=== PATIENT | female | born 1995 | race Two or more races ===

== ENCOUNTER 2024-01-27 22:12 | Emergency (ER) | payer BC, MEDICAID, SELFPAY ==
[2024-01-27 22:14] VITALS: BP 129/93; PULSE 79; RESP 17; TEMP 36.7; O2SAT 98
[2024-01-27 22:27] VITALS: PULSE 78; O2SAT 98; BMI 28.7
--- NOTE | 2024-01-27 22:35 | EDNOTE_ITS ---
ED General RME/HPI General Chief complaint: Back Pain/Injury Stated complaint: BACK PAIN Time Seen by Provider: 01/27/24 22:29 Arrival date/time: 01/27/24 22:12 CC: Left low back buttock pain that radiates down the left leg into the foot, patient states a similar episode 1 month ago onset of this episode was 2 hours ago patient states that she was in the gym working out when this occurred. The patient states since the last visit she was gone to PT twice but has not followed up back with her primary care provider patient took 500 mg of NSAIDs and 1000 mg of ibuprofen in the past 2 hours with minimal relief. Patient denies any bowel or bladder symptoms saddle anesthesia numbness tingling or weakness in the lower extremities. Related Data Previous Rx's ?Medication ?Instructions ?Recorded ibuprofen 600 mg tablet 600 mg PO Q6HR PRN PAIN #20 tabs 10/15/16 cyclobenzaprine 10 mg tablet 10 mg PO TID PRN muscle spasm #10 12/17/23 tabs ibuprofen 600 mg tablet 600 mg PO Q8H PRN pain #20 tabs 12/17/23 lidocaine 5 % topical patch 1 patch topical QDAY #15 ea 01/27/24 (Lidoderm) prednisone 20 mg tablet See Taper PO BID 3 days #6 tabs 01/27/24 Allergies Allergy/AdvReac Type Severity Reaction Status Date / Time No Known Allergies Allergy Verified 12/17/23 08:29 Review of Systems Review of Systems Narrative Review of Systems: GEN: No fever, no chills, no weight loss EYES: No discharge, no visual changes, no pain HEENT: No ear pain, no congestion, no sore throat PULM: No shortness of breath, no cough, no congestion CV: No chest pain, no dyspnea on exertion, no palpitations GI: No nausea, no vomiting, no diarrhea, no pain, no constipation : No frequency, no urgency, no dysuria MUSC/SKEL: No joint pain, + back pain SKIN: No rash PSYCH: No hallucinations, no depression HEME/LYMPH: No easy bleeding or bruising tendencies NEURO: No weakness, no headache Past Medical History Social History SMOKING STATUS: Never smoker ED Exam Narrative Physical exam: [General: In mild discomfort but not in any acute distress Head normocephalic HEENT: Within acceptable limits Neck is supple nontender Chest equal chest rise nontender to palpation Respiratory: Clear to auscultation no wheezes crackles or rubs CV: Rate rhythm is regular no murmurs rubs or clicks Abdomen is soft nontender no masses positive bowel sounds all 4 quadrants Back: No CVA tenderness no spinous process tenderness from cervical spine thoracic and lumbar spine Skin: Intact no petechiae rash induration ulceration or crepitus Extremities: Lower extremities: The patient has range of motion of both lower extremities she has straight leg raise with the left leg however that elicits pain in the low back rating down the back of the leg. Patient has full flexion extension with equal strength bilaterally in both feet with flexion extension of the ankle. Cap refill all digits less than 2 seconds neurosensory intact. Moving all other extremities against resistance cap refill less than 2 seconds neurosensory intact Neuro: Awake alert oriented x3 Glascow coma 15 no focal deficits] Course Quality Measures none Vital Signs Vital signs: Vital Signs Temperature 98.0 F 01/27/24 22:14 Pulse Rate 79 01/27/24 22:14 Respiratory Rate 17 01/27/24 22:14 Blood Pressure 129/93 H 01/27/24 22:14 Pulse Oximetry (%) 98 01/27/24 22:14 Oxygen Delivery Method Room Air 01/27/24 22:14 MDM Patient data External records reviewed:: [facility] previous records Clinical information provided by:: patient and spouse Social determinants that could affect healthcare access:: none Patient has the following chronic illnesses:: None How is presenting disease/condition affected by chronic disease/condition?: uneffected by Evaluation data The following diagnostics were reviewed and interpreted by me:: other (specify) (None) Lab and/or radiology exams considered but not ordered:: None Interpretation Summary: Left sciatica Medications Medications considered but not ordered:: None Medication administrations:: None Consultations Consultation(s) initiated? (list below): No Diagnosis Differential Diagnosis ED Complaint MDM: Sciatica low back strain chronic low back pain Most likely diagnosis given after review of the tests above:: Left sciatica Admission Indicated Admission indicated?: not indicated Explain why admission is indicated or not indicated:: Stable for outpatient follow-up Admission Request Was there a request for admission?: No Disposition Plan Disposition Plan: Discharge Discharge Attestation Discharge Attestation: The patient and all family members were given an opportunity to ask questions and understood the discharge instructions. Discharge instructions specifically effects, indications for sooner follow up or return to the emergency department, and the expected course of current diagnosis. Patient condition: Stable Medical Decision Making Differential Diagnosis Differential Diagnosis: Sciatica low back strain chronic low back pain Discharge Plan Plan Patient Disposition: HOME (Self Care) Patient condition on transfer: Stable Prescriptions/Referrals Prescriptions/Med Rec: New prednisone 20 mg tablet See Taper PO BID 3 Days Qty: 6 0RF Taper: Prednisone Taper 20 mg DAILY for 2 Days and 0 Hour 10 mg DAILY for 2 Days and 0 Hour 5 mg DAILY for 7 Days and 0 Hour lidocaine [Lidoderm] 5 % adhesive patch,medicated 1 patch topical QDAY Qty: 15 0RF Rx Instructions: leave on most painful area for up to 12 hrs No Action ibuprofen 600 MG tablet 600 mg PO Q6HR PRN (Reason: PAIN) Qty: 20 0RF cyclobenzaprine 10 mg tablet 10 mg PO TID PRN (Reason: muscle spasm) Qty: 10 0RF ibuprofen 600 mg tablet 600 mg PO Q8H PRN (Reason: pain) Qty: 20 0RF Problem List Clinical Impression: Sciatica Patient/Caregiver Discharge Instructions Other Activity Instructions:: Follow-up with your primary care provider, consider outpatient MRI for further evaluation. Do not work out, avoid lifting or bending without keeping your back straight to use your legs for lifting. Education Materials: ED Sciatica Print Language: [place] Stand Alone Forms: Norma Award Info., Patient Portal Info Letter, Work/School Release PA/YARDAGE CONTROL CLERK Supervising Physician PA/YARDAGE CONTROL CLERK Supervising Physician: Spencer Chandra ENP
[2024-01-27] MEDS: predniSONE 20 MG TABLET PO (23:02)
== END 2024-01-27 23:31 | disposition home or self-care (01) ==
LOC: SERX 01-28 00:02
PROVIDERS: Emergency Provider Emergency Medicine; PCP Family Medicine
DX: M54.42 Lumbago with sciatica, left side (principal)
CPT/HCPCS: 99282; J7512